=== PATIENT | female | born 1960 | race African-American/Black ===

== ENCOUNTER 2018-11-27 13:06 | Emergency (ER) | payer MEDICARE, OTHER ==
[~2018-11-27] VITALS: Ht 165.1 cm; Wt 99.8 kg
[2018-11-27 13:55] VITALS: BP 194/93
[2018-11-27] MEDS ORDERED: MEPERIDINE HCL (25 MG/ML) 1ML VIAL IM ONE (14:45)
[2018-11-27] MEDS ORDERED: PROMETHAZINE HCL 25 MG/ML 1ML IM ONE (14:45)
== END 2018-11-27 15:25 | disposition home or self-care (01) ==
LOC: ER 13:12
DX: M23.92 Unspecified internal derangement of left knee (principal); I10 Essential (primary) hypertension; F17.210 Nicotine dependence, cigarettes, uncomplicated; Z91.040 Latex allergy status
CPT/HCPCS: 73562; 96372; 99283; J2175; J2550

== ENCOUNTER → 2018-11-30 | Emergency (ER) | payer MEDICARE, MEDICAID | END | disposition left against medical advice (07) | LOC: EDUNIT# 21:42 → EDBD 21:50 → ER 21:50 | DX: F10.10 Alcohol abuse, uncomplicated (principal); Z53.21 Procedure and treatment not carried out due to patient leaving prior to being seen by health care provider ==

== ENCOUNTER 2024-10-27 18:48 | Inpatient (IN) | payer MEDICARE, MEDICAID ==
[~2024-10-27] VITALS: Ht 167.6 cm; Wt 112.3 kg
[~2024-10-27 18:48] MED LIST: NITR-87 PO
[2024-10-27] MEDS: MORPHINE SULFATE 4 MG/ML SYR/VIAL IV ONE (19:00)
[2024-10-27] MEDS: ONDANSETRON HCL 4 MG/2 ML VIAL IV ONE (19:00)
[2024-10-27] MEDS: SODIUM CHLORIDE 0.9% 1,000 ML IV ONE (19:00)
--- NOTE | 2024-10-27 19:22 | ED.PDOC ---
History of Present Illness HPI Comments 63 y/o obese F is BIBA for syncope. Per EMS report, daughter called after patient had a sudden and unprovoked syncopal episode, while walking out of a room of her home, this evening. Vision was stated to have narrowed prior to passing out. Patient was caught and assisted to the ground by daughter. Patient has been dealing with generalized bodyaches and watery diarrhea for the past 3x days. Patient has a history of colon cancer stage III - in remission, CHF, DM, HTN, and tobacco cigarette use. On scene, vitals were stable and within normal limits, with a noted blood glucose of 186. Patient denies having any injuries, dizziness, headache, or further associated symptoms. 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 Past Medical History PAST MEDICAL HISTORY: Cancer (Colon cancer stage III, in remission ), CHF, Depression, DM, HTN Surgical History: Denies all surgeries [employer] History: Denies all [employer] Hx Family History Family History: Unknown Social History Smoker: Cigarettes Alcohol: Denies ETOH Use Drugs: Denies Drug Use Lives In: Home All Other Systems: Reviewed and Negative (Comprehensive systems review obtained and negative except for what is stated in the HPI.) Physical Exam General Appearance: No Apparent Distress, Obese, Other (uncomfortable appearing ) HEENT: Normal ENT Inspection, Pharynx Normal, TMs Normal Neck: Full Range of Motion, Non-Tender, Normal, Normal Inspection Respiratory: Chest Non-Tender, Lungs Clear, No Accessory Muscle Use, No Respiratory Distress, Normal Breath Sounds Cardiovascular: No Edema, No JVD, No Murmur, No Gallop, Normal Peripheral Pulses, Regular Rate/Rhythm Breast Exam: Deferred Gastrointestinal: No Organomegaly, Non Tender, No Pulsatile Mass, Normal Bowel Sounds, Soft Genitalia: Deferred Pelvic: Deferred Rectal: Deferred Extremities: No calf tenderness, Normal capillary refill, Normal inspection, Normal range of motion, Non-tender, No pedal edema Musculoskeletal : Apperance: Normal Neurologic: Alert, child care II-XII nml as Tested, No Motor Deficits, Normal Affect, Normal Mood, No Sensory Deficits Cerebellar Function: Normal Reflexes: Normal Skin: Dry, Normal Color, Warm Lymphatic: No Adenopathy Was a procedure done? Was a procedure done?: No Differential Dx Considerations may include: Viral syndrome, UTI, URI, electrolyte imbalance, dehydration, vasovagal response, among others X-Ray, Labs, Meds, VS Vital Signs Date Time Temp Pulse Resp B/P (MAP) Pulse Ox O2 Delivery O2 Flow Rate FiO2 10/27/24 21:00 98.5 89 18 108/64 (79) 94 98.5 10/27/24 21:00 89 18 95 Room Air* 0 21 10/27/24 19:09 99.1 95 18 137/75 (95) 94 99.1 10/27/24 19:00 80 20 132/82 Lab Test 10/27/24 23:08 10/27/24 21:02 10/27/24 19:40 10/27/24 19:33 Range/Units Urine Color Yellow Yellow Urine Clarity Turbid H Clear Urine pH 5.5 5.0-9.0 Urine Specific [place] 1.015 1.001-1.035 Urine Protein 1+ H Negative Urine Ketones Negative Negative Urine Blood Negative Negative /uL Urine Nitrite Negative Negative Urine Bilirubin Negative Negative Urine Urobilinogen Normal Negative mg/dL Urine Leukocyte Esterase 1+ Negative /uL Urine RBC 1 0 - 4 /hpf Urine Microscopic WBC 7 H 0-5 /HPF Urine Squamous Epithelial Cells Few <5 /hpf Urine Bacteria Few H None Seen /hpf Urine Hyaline Casts Mod 0 - 2 /lpf Urine Mucus Few None Seen Urine Glucose Normal Normal mg/dL Troponin I High Sensitivity < 3 L 3 L </=34 ng/L White Blood Count 7.2 4.4-10.8 10^3/uL Red Blood Count 5.50 H 4.0-5.20 10^6/uL Hemoglobin 14.6 12.2-16.2 g/dL Hematocrit 42.7 36.0-46.0 % Mean Corpuscular Volume 77.7 L 80.0-100.0 fL Mean Corpuscular Hemoglobin 26.5 L 28.0-32.0 pg Mean Corpuscular Hemoglobin Concent 34.1 32.0-36.0 g/dL Red Cell Distribution Width 17.2 H 11.8-14.3 % Platelet Count 220 140-450 10^3/uL Mean Platelet Volume 8.6 6.9-10.8 fL Neutrophils (%) (Auto) 77.2 37.0-80.0 % Lymphocytes (%) (Auto) 15.3 10.0-50.0 % Monocytes (%) (Auto) 5.8 0.0-12.0 % Eosinophils (%) (Auto) 0.8 0.0-7.0 % Basophils (%) (Auto) 0.9 0.0-2.0 % Neutrophils # (Auto) 5.6 1.6-8.6 10 ^3/uL Lymphocytes # (Auto) 1.1 0.4-5.4 10 ^3/uL Monocytes # (Auto) 0.4 0-1.3 10 ^3/uL Eosinophils # (Auto) 0.1 0-0.8 10 ^3/uL Basophils # (Auto) 0.1 0-0.2 10 ^3/uL Nucleated Red Blood Cells 0.0 % Sodium Level 137 136-145 mmol/L Potassium Level 3.8 3.5-5.1 mmol/L Chloride Level 107 98-107 mmol/L Carbon Dioxide Level 21 20-31 mmol/L Anion Gap 9 5-15 Blood Urea Nitrogen 12 9-23 mg/dL Creatinine 1.06 H 0.550-1.02 mg/dL Glomerular Filtration Rate Calc 59 >90 mL/min BUN/Creatinine Ratio 11.3 10.0-20.0 Serum Glucose 162 H 74-106 mg/dL Calcium Level 9.4 8.7-10.4 mg/dL POC Glucose 165 H 70-106 mg/dl Current Medications Medications (Trade) Dose Ordered Sig/Kami Route Start Time Stop Time Status Last Admin Sodium Chloride 1,000 ml @ 1,000 mls/hr Q1H ONCE IV 10/27/24 19:00 10/27/24 19:59 IA 10/27/24 19:00 Ondansetron HCl (Zofran) 4 mg ONCE ONCE IV 10/27/24 19:00 10/27/24 19:01 IA 10/27/24 19:00 Morphine Sulfate 4 mg ONCE ONCE IV 10/27/24 19:00 10/27/24 19:01 IA 10/27/24 19:00 [place] [address] Ph: [phone] DIAGNOSTIC IMAGING Diagnostic Imaging Report : [id number] Signed PATIENT: DENYS NUNEZ ACCT: [id number] UNIT: [id number] : 1960 LOC: ER ROOM / BED: / AGE / SEX: 63 / F ADM STATUS: REG ER SERVICE 57 ORDERING PHYSICIAN: SALLY BRAVO MD PROCEDURE(s): HWOCT - HEAD WITHOUT CONTRAST REASON: syncope ORDER NUMBER(s): [id number], ACCESSION NUMBER(s): [id number] CT BRAIN WITHOUT CONTRAST HISTORY: syncope TECHNIQUE: Axial scans were obtained from the skull base through the vertex without contrast. Sagittal and coronal reformats were generated. One or more of the following radiation dose reduction techniques were used for this examination: automated exposure control, adjustment of the mA and/or kV according to patient size, use of iterative reconstruction technique. COMPARISON: None FINDINGS: Streak artifact somewhat limits evaluation, especially of the skull base and posterior fossa. As visualized, there is no definite evidence of acute intracranial hemorrhage or large vessel territorial infarction identified at this time. No midline shift. The basilar cisterns are patent. The visualized paranasal sinuses and mastoid air cells are clear. No grossly displaced calvarial fracture is identified. IMPRESSION: No acute intracranial Findings as visualized. If there is persistent clinical concern, follow-up MRI may be considered to further evaluate. ATED BY: HERON LAWRENCE MD DICTATED DATE/TIME: 10/27/242055 SIGNED BY: HERON LAWRENCE MD SIGNED DATE/TIME: 10/27/242055 CC: [address] [address] Ph: [phone] DIAGNOSTIC IMAGING Diagnostic Imaging Report : [id number] Signed PATIENT: DENYS NUNEZ ACCT: [id number] UNIT: [id number] : 1960 LOC: ER ROOM / BED: / AGE / SEX: 63 / F ADM STATUS: REG ER SERVICE 53 ORDERING PHYSICIAN: SALLY BRAVO MD PROCEDURE(s): ABPL - CT AB PEL WO CON-NO ORAL OR IV REASON: abdominal pain ORDER NUMBER(s): [id number], ACCESSION NUMBER(s): [id number] Exam: CT CT AB PEL WO CON-NO ORAL OR IV History: abdominal pain Comparison Study: None Technique: Multidetector spiral CT of the abdomen was performed from lung bases to pubic symphysis. Imaging was performed without IV contrast. Axial, coronal and sagittal multiplanar reformats were obtained from the axial data set by the technologist. Radiation Dose : 1. Abdomen/Pelvis: CTDIvol 23.79 mGy, DLP 1309.08 mGy*cm. Findings: Evaluation of solid organs is limited due to lack of intravenous contrast use. Lung Bases: No acute or significant lung base finding. Normal heart size. No pleural or pericardial effusion. Subcentimeter pulmonary nodule in the periphery of the right lower lobe. Liver: The liver is normal in size. No focal lesions. Gallbladder and Biliary Tree: Unremarkable Spleen: Unremarkable Pancreas: The pancreas is grossly normal in appearance. Adrenal Glands: Unremarkable Kidneys: Left renal cysts measuring up to 3.8 cm. Right kidney located in the lower midabdomen. Bladder: Evaluated. Bowel: The stomach is grossly normal in appearance. Small bowel and colon are normal in caliber and distribution. The appendix is not visualized; however, no secondary findings of acute appendicitis identified. Postsurgical changes of the rectosigmoid colon. Ascites: Absent Lymphadenopathy: No mesenteric, retroperitoneal or periportal lymphadenopathy. Abdominal Wall and Mesentery: Unremarkable. Vasculature: The visualized abdominal aorta is normal in size and caliber. Evaluation of abdominal and pelvic vessels is limited due to lack of intravenous contrast. Pelvic Organs: Hypodense lesion in the right adnexa measuring up to 2.5 cm with adjacent calcification. Musculoskeletal: No aggressive focal bony lesions, acute fractures or dislocation. 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 Left renal cysts measuring up to 3.8 cm. Potential dermoid cyst in the right adnexa measuring up to 2.5 cm. Consider further evaluation with ultrasound if clinically indicated. END IMPRESSION: ATED BY: OCHOA PHIPPS DO DICTATED DATE/TIME: 10/27/242158 SIGNED BY: DESIRE OCHOA Pablo DO SIGNED DATE/TIME: 10/27/242158 CC: Time of 1ST Reevaluation: 19:20 Reevaluation 1ST: Unchanged Patient Education/Counseling: Diagnosis, Treatment Family Education/Counseling: No Family Present Additional Information Previous visits reviewed: November 30, 2018 encounter for EtOH The following tests were ordered, and results were reviewed by me: Troponin, Head CT w/o contrast, CXR, UA, CBC, BMP Additional Information was gathered from interviewing the following independent historians: EMS I reviewed and agreed with the following test results read by other providers: Head CT w/o contrast, CXR I discussed treatment and results with medical personnel and: patient Departure 1 Departure Time of Disposition: 23:52 (Patient presented with syncope today and should be admitted. Data: 1. I ordered and reviewed the result of at least 3 labs including a CBC, BMP, and troponin. 2. I independently interpreted the following tests: EKG which shows a sinus arrhythmia and a chest x-ray which shows benign chest and a CT head which shows benign brain.Risk:This patient has a high risk of morbidity due to further diagnostic testing or treatment and may suffer from an acute cardiac, neurologic, or infectious disorder. Rationale: Patient should be admitted to the hospital for further management.) Impression: Primary Impression: Syncope and collapse Disposition: 09 ADMITTED INPATIENT Admit to: Med Surg Condition: Serious Critical Care Note Critical Care Time?: Yes Critical care comment: Syncope Authorized and Performed by: Sally Bravo MD Total critical care time: Approximately 38 minutes Due to a high probability of clinically significant, life threatening deterioration, the patient required my highest level of preparedness to intervene emergently and I personally spent this critical care time directly and personally managing the patient. This critical care time included obtaining a history; examining the patient; pulse oximetry; ordering and review of studies; arranging urgent treatment with development of a management plan; evaluation of patient's response to treatment; frequent reassessment; and, discussions with other providers. This critical care time was performed to assess and manage the high probability of imminent, life-threatening deterioration that could result in multi-organ failure. It was exclusive of separately billable procedures and treating other patients and teaching time. Please see my other sections and the rest of the note for further information on patient assessment and treatment. Stability Stability form required: No Heart Score Heart Score: Heart Score Response (Comments) Value History N/A 0 EKG N/A 0 Age N/A 0 Risk Factors N/A 0 Troponin N/A 0 Total 0 I personally scribed for SALLY BRAVO MD ([email or web address]) on 10/27/24 at 19:22. Electronically submitted by Narinder Hendricks ([email or web address]). I personally scribed for SALLY BRAVO MD ([email or web address]) on 10/27/24 at 23:21. Electronically submitted by Narinder Hendricks ([email or web address]). SALLY BRAVO MD Oct 27, 2024 19:22
[2024-10-27 19:55] LABS: Basophils # (auto) 0.1 10 ^3/uL (0-0.2); Basophils % (auto) 0.9 % (0.0-2.0); Eosinophils # (auto) 0.1 10 ^3/uL (0-0.8); Eosinophils % (auto) 0.8 % (0.0-7.0); Hematocrit 42.7 % (36.0-46.0); Hemoglobin 14.6 g/dL (12.2-16.2); Lymphocytes # (auto) 1.1 10 ^3/uL (0.4-5.4); Lymphocytes % (auto) 15.3 % (10.0-50.0); Mean Corpuscular Hemoglobin 26.5 pg (28.0-32.0); Mean Corpuscular Hgb Conc. 34.1 g/dL (32.0-36.0); Mean Corpuscular Volume 77.7 fL (80.0-100.0); Monocytes # (auto) 0.4 10 ^3/uL (0-1.3); Monocytes % (auto) 5.8 % (0.0-12.0); Neutrophils # (auto) 5.6 10 ^3/uL (1.6-8.6); Neutrophils % (auto) 77.2 % (37.0-80.0); Platelet Count (auto) 220 10^3/uL (140-450); Red Cell Distribution Width 17.2 % (11.8-14.3); White Blood Cell 7.2 10^3/uL (4.4-10.8)
[2024-10-27 19:59] LABS: Potassium 3.8 mmol/L (3.5-5.1); Sodium 137 mmol/L (136-145)
[2024-10-27 20:00] LABS: Calcium 9.4 mg/dL (8.7-10.4); Chloride 107 mmol/L (98-107)
[2024-10-27 20:05] LABS: BUN/Creatinine Ratio 11.3 (10.0-20.0); Blood Urea Nitrogen 12 mg/dL (9-23)
[2024-10-27 20:08] LABS: Glucose 162 mg/dL (74-106)
[2024-10-27 20:17] LABS: Anion Gap 9 (5-15); Carbon Dioxide 21 mmol/L (20-31)
--- NOTE | 2024-10-27 20:59 | DVH ---
CT BRAIN WITHOUT CONTRAST HISTORY: syncope TECHNIQUE: Axial scans were obtained from the skull base through the vertex without contrast. Sagitta l and coronal reformats were generated. One or more of the following radiation dose reduction techniq ues were used for this examination: automated exposure control, adjustment of the mA and/or kV accord ing to patient size, use of iterative reconstruction technique. COMPARISON: None FINDINGS: Streak artifact somewhat limits evaluation, especially of the skull base and posterior fossa. As visu alized, there is no definite evidence of acute intracranial hemorrhage or large vessel territorial in farction identified at this time. No midline shift. The basilar cisterns are patent. The visualized paranasal sinuses and mastoid air cells are clear. No grossly displaced calvarial frac ture is identified. IMPRESSION: No acute intracranial Findings as visualized. If there is persistent clinical concern, follow-up MRI may be considered to further evaluate.
[2024-10-27 21:00] VITALS: PULSE 89; RESP 18; O2SAT 95
--- NOTE | 2024-10-27 22:02 | DVH ---
Exam: CT CT AB PEL WO CON-NO ORAL OR IV History: abdominal pain Comparison Study: None Technique: Multidetector spiral CT of the abdomen was performed from lung bases to pubic symphysis. I maging was performed without IV contrast. Axial, coronal and sagittal multiplanar reformats were obta ined from the axial data set by the technologist. Radiation Dose : 1. Abdomen/Pelvis: CTDIvol 23.79 mGy, DLP 1309.08 mGy*cm. Findings: Evaluation of solid organs is limited due to lack of intravenous contrast use. Lung Bases: No acute or significant lung base finding. Normal heart size. No pleural or pericardial effusion. Subcentimeter pulmonary nodule in the periphery of the right lower lobe. Liver: The liver is normal in size. No focal lesions. Gallbladder and Biliary Tree: Unremarkable Spleen: Unremarkable Pancreas: The pancreas is grossly normal in appearance. Adrenal Glands: Unremarkable Kidneys: Left renal cysts measuring up to 3.8 cm. Right kidney located in the lower midabdomen. Bladder: Evaluated. Bowel: The stomach is grossly normal in appearance. Small bowel and colon are normal in caliber and d istribution. The appendix is not visualized; however, no secondary findings of acute appendicitis prasanth ntified. Postsurgical changes of the rectosigmoid colon. Ascites: Absent Lymphadenopathy: No mesenteric, retroperitoneal or periportal lymphadenopathy. Abdominal Wall and Mesentery: Unremarkable. Vasculature: The visualized abdominal aorta is normal in size and caliber. Evaluation of abdominal a nd pelvic vessels is limited due to lack of intravenous contrast. Pelvic Organs: Hypodense lesion in the right adnexa measuring up to 2.5 cm with adjacent calcificatio n. Musculoskeletal: No aggressive focal bony lesions, acute fractures or dislocation. 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 Left renal cysts measuring up to 3.8 cm. Potential dermoid cyst in the right adnexa measuring up to 2.5 cm. Consider further evaluation with u ltrasound if clinically indicated. END IMPRESSION:
[2024-10-27 23:28] LABS: Urine Bacteria FEW /hpf (None Seen); Urine Blood Negative /uL (Negative); Urine Clarity Turbid (Clear); Urine Color Yellow (Yellow); Urine Hyaline Cast MOD /lpf (0 - 2); Urine Mucus FEW (None Seen); Urine Protein, UAD 1+ (Negative); Urine Specific Gravity 1.015 (1.001-1.035); Urine Squamous Epithelial Cell FEW /hpf (<5); Urine Urobilinogen Normal (Negative); Urine WBC 7 /HPF (0-5); Urine pH 5.5 (5.0-9.0)
[2024-10-28] VITALS (8 sets, daily range): BP systolic 115–128; BP diastolic 56–62; PULSE 66–90; RESP 13–18; TEMP 97.6–98.6; O2SAT 94–97
--- NOTE | 2024-10-28 01:23 | DVHHP2 ---
History of Present Illness Reason for Visit: Syncope History of Present Illness 63-year-old female presents for evaluation of syncopal episode. Patient reports sitting and confirmed reports and Megace female dizzy today. She states trying to get back in to her home and was not able to make it. She states her family was able to catch her before she fell to the ground. She states when she regained consciousness she was so dizzy and had some chest pain. Currently denies chest pain or shortness for breath. No unilateral weakness or slurred speech. Reports having some abdominal cramps. She states having some diarrhea over the past couple of days. No abdominal pain. No fever or chills. No other acute complaints. Past Medical History Colon cancer, diabetes mellitus, hypertension Past Surgical History Denies Family History Noncontributory Smoke: <1 pack per day ALCOHOL: none Drugs: None Lives: with Family Review of Systems Review of Systems Review of systems are currently negative otherwise addressed in HPI. Allergies: Coded Allergies: Latex (Verified Allergy, Unknown, 11/27/18) Exam Vital Signs Vital Signs Date Time Temp Pulse Resp B/P (MAP) Pulse Ox O2 Delivery O2 Flow Rate FiO2 10/28/24 01:06 98.2 90 18 115/58 (77) 95 98.2 10/27/24 21:00 Room Air* 0 21 Exam Gen: 63-year-old female in no apparent distress, morbidly obese Skin: Warm, dry, normal color and texture, no rash. HEENT: Normocephalic atraumatic, mucous membranes moist and pink. Neck: Cervical and supraclavicular nodes normal without enlargement, trachea is midline, thyroid gland is normal without masses. Pulmonary: Clear to auscultation and percussion bilaterally. Cardiac: Regular rate and rhythm. No murmur Abdomen: Soft, nontender, nondistended, bowel sounds present all 4 quadrants, no guarding, no rigidity, no organomegaly. Extremities: No cyanosis, clubbing, no edema Neuro: Cranial nerves II through XII grossly intact, normal affect and speech, no focal motor deficits. Labs/Xrays ORDERING PHYSICIAN: SALLY BRAVO MD PROCEDURE(s): HWOCT - HEAD WITHOUT CONTRAST REASON: syncope ORDER NUMBER(s): [id number], ACCESSION NUMBER(s): [id number] CT BRAIN WITHOUT CONTRAST HISTORY: syncope TECHNIQUE: Axial scans were obtained from the skull base through the vertex without contrast. Sagittal and coronal reformats were generated. One or more of the following radiation dose reduction techniques were used for this examination: automated exposure control, adjustment of the mA and/or kV according to patient size, use of iterative reconstruction technique. COMPARISON: None FINDINGS: Streak artifact somewhat limits evaluation, especially of the skull base and posterior fossa. As visualized, there is no definite evidence of acute intracranial hemorrhage or large vessel territorial infarction identified at this time. No midline shift. The basilar cisterns are patent. The visualized paranasal sinuses and mastoid air cells are clear. No grossly displaced calvarial fracture is identified. IMPRESSION: No acute intracranial Findings as visualized. If there is persistent clinical concern, follow-up MRI may be considered to further evaluate. ATED BY: HERON LAWRENCE MD ORDERING PHYSICIAN: SALLY BRAVO MD PROCEDURE(s): ABPL - CT AB PEL WO CON-NO ORAL OR IV REASON: abdominal pain ORDER NUMBER(s): [id number], ACCESSION NUMBER(s): [id number] Exam: CT CT AB PEL WO CON-NO ORAL OR IV History: abdominal pain Comparison Study: None Technique: Multidetector spiral CT of the abdomen was performed from lung bases to pubic symphysis. Imaging was performed without IV contrast. Axial, coronal and sagittal multiplanar reformats were obtained from the axial data set by the technologist. Radiation Dose : 1. Abdomen/Pelvis: CTDIvol 23.79 mGy, DLP 1309.08 mGy*cm. Findings: Evaluation of solid organs is limited due to lack of intravenous contrast use. Lung Bases: No acute or significant lung base finding. Normal heart size. No pleural or pericardial effusion. Subcentimeter pulmonary nodule in the periphery of the right lower lobe. Liver: The liver is normal in size. No focal lesions. Gallbladder and Biliary Tree: Unremarkable Spleen: Unremarkable Pancreas: The pancreas is grossly normal in appearance. Adrenal Glands: Unremarkable Kidneys: Left renal cysts measuring up to 3.8 cm. Right kidney located in the lower midabdomen. Bladder: Evaluated. Bowel: The stomach is grossly normal in appearance. Small bowel and colon are normal in caliber and distribution. The appendix is not visualized; however, no secondary findings of acute appendicitis identified. Postsurgical changes of the rectosigmoid colon. Ascites: Absent Lymphadenopathy: No mesenteric, retroperitoneal or periportal lymphadenopathy. Abdominal Wall and Mesentery: Unremarkable. Vasculature: The visualized abdominal aorta is normal in size and caliber. Evaluation of abdominal and pelvic vessels is limited due to lack of intravenous contrast. Pelvic Organs: Hypodense lesion in the right adnexa measuring up to 2.5 cm with adjacent calcification. Musculoskeletal: No aggressive focal bony lesions, acute fractures or dislocation. 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 Left renal cysts measuring up to 3.8 cm. Potential dermoid cyst in the right adnexa measuring up to 2.5 cm. Consider further evaluation with ultrasound if clinically indicated. END IMPRESSION: Labs Test 10/27/24 23:08 10/27/24 21:02 10/27/24 19:40 10/27/24 19:33 Range/Units Urine Color Yellow Yellow Urine Clarity Turbid H Clear Urine pH 5.5 5.0-9.0 Urine Specific [place] 1.015 1.001-1.035 Urine Protein 1+ H Negative Urine Ketones Negative Negative Urine Blood Negative Negative /uL Urine Nitrite Negative Negative Urine Bilirubin Negative Negative Urine Urobilinogen Normal Negative mg/dL Urine Leukocyte Esterase 1+ Negative /uL Urine RBC 1 0 - 4 /hpf Urine Microscopic WBC 7 H 0-5 /HPF Urine Squamous Epithelial Cells Few <5 /hpf Urine Bacteria Few H None Seen /hpf Urine Hyaline Casts Mod 0 - 2 /lpf Urine Mucus Few None Seen Urine Glucose Normal Normal mg/dL Troponin I High Sensitivity < 3 L </=34 ng/L White Blood Count 7.2 4.4-10.8 10^3/uL Red Blood Count 5.50 H 4.0-5.20 10^6/uL Hemoglobin 14.6 12.2-16.2 g/dL Hematocrit 42.7 36.0-46.0 % Mean Corpuscular Volume 77.7 L 80.0-100.0 fL Mean Corpuscular Hemoglobin 26.5 L 28.0-32.0 pg Mean Corpuscular Hemoglobin Concent 34.1 32.0-36.0 g/dL Red Cell Distribution Width 17.2 H 11.8-14.3 % Platelet Count 220 140-450 10^3/uL Mean Platelet Volume 8.6 6.9-10.8 fL Neutrophils (%) (Auto) 77.2 37.0-80.0 % Lymphocytes (%) (Auto) 15.3 10.0-50.0 % Monocytes (%) (Auto) 5.8 0.0-12.0 % Eosinophils (%) (Auto) 0.8 0.0-7.0 % Basophils (%) (Auto) 0.9 0.0-2.0 % Neutrophils # (Auto) 5.6 1.6-8.6 10 ^3/uL Lymphocytes # (Auto) 1.1 0.4-5.4 10 ^3/uL Monocytes # (Auto) 0.4 0-1.3 10 ^3/uL Eosinophils # (Auto) 0.1 0-0.8 10 ^3/uL Basophils # (Auto) 0.1 0-0.2 10 ^3/uL Nucleated Red Blood Cells 0.0 % Sodium Level 137 136-145 mmol/L Potassium Level 3.8 3.5-5.1 mmol/L Chloride Level 107 98-107 mmol/L Carbon Dioxide Level 21 20-31 mmol/L Anion Gap 9 5-15 Blood Urea Nitrogen 12 9-23 mg/dL Creatinine 1.06 H 0.550-1.02 mg/dL Glomerular Filtration Rate Calc 59 >90 mL/min BUN/Creatinine Ratio 11.3 10.0-20.0 Serum Glucose 162 H 74-106 mg/dL Calcium Level 9.4 8.7-10.4 mg/dL POC Glucose 165 H 70-106 mg/dl Assessment/Plan Assessment/Plan Assessment Syncope Diabetes mellitus Acute kidney injury Plan Admit the patient to telemetry to the hospitalist Cardiology consultation Echocardiogram/carotid ultrasound pending Continue treatment per orders Plan discussed with: Patient My Orders Orders - AYAN SAUER Procedure Category Date Status Time * Cardiology Consult CONS 10/28/24 Verified 01:16 Basic Metabolic Panel LAB 10/28/24 Verified 04:00 Admit ADMIT 10/28/24 Verified 01:16 Temazepam (Restoril) PHA 10/28/24 Verified 01:30 Ondansetron Hcl PHA 10/28/24 Verified (Zofran) 01:30 Cardiac DIET 10/28/24 Verified Diet-2gna,Lofat,Lochol Breakfast Echo 2d Mode Cardiac US 10/28/24 Verified DOP 01:16 Carotid Duplx W Color US 10/28/24 Verified DOP 01:16 Condition: Fair [facility] 10/28/24 Verified 01:16 Acetaminophen Tablet PHA 10/28/24 Verified (Tylenol Tablet) 01:30 Bedrest With Bathroom [facility] 10/28/24 Verified Privileg 01:16 Glucose Blood PHA 10/28/24 Verified (Accu-Chek Comfort 07:00 Mild Sliding Scale PHA 10/28/24 Verified 07:00 Dextrose 50% Syringe PHA 10/28/24 Verified 01:30 Nitroglycerin PHA 10/28/24 Verified Sublingual (Ntrostat 01:30 Morphine Sulfate PHA 10/28/24 Verified Injection 01:30 Stat Ekg For Chest [facility] 10/28/24 Verified Pain 01:16 Notify Md Of Changes [facility] 10/28/24 Verified From Base 01:16 Office Manager Executive Assistant For [facility] 10/28/24 Verified 24 Hours 01:16 Emergency Dysrhythmia [facility] 10/28/24 Verified Protocol 01:16 Rhythm Strips Once [facility] 10/28/24 Verified Every Shift 01:16 Oxygen By Nasal RT 10/28/24 Verified Cannula 01:16 Stool Bacterial [place] 10/28/24 Verified Culture 01:16 Date of Service: Oct 28, 2024 Billing Provider: AYAN SAUER Common Visit Codes: [id number] INP/OBS CARE (HIGH) AYAN SAUER Oct 28, 2024 01:23
[2024-10-28] MEDS ORDERED: MORPHINE SULFATE INJ 2 MG/ml SYRG IV PRN (01:30)
[2024-10-28] MEDS ORDERED: NITROGLYCERIN 0.4 MG SL TAB SL PRN (01:30)
[2024-10-28] MEDS ORDERED: DEXTROSE (50%) 50ML SYRG IV PRN (01:30)
[2024-10-28] MEDS ORDERED: ALBUTEROL SULF 2.5 MG/0.5ML(0.5%) NEB SOLN NEB PRN (01:30)
[2024-10-28] MEDS ORDERED: ONDANSETRON HCL 4 MG/2 ML VIAL IV PRN (01:30)
[2024-10-28] MEDS ORDERED: ACETAMINOPHEN 325 MG TAB PO PRN (01:30)
[2024-10-28 04:46] LABS: Potassium 3.8 mmol/L (3.5-5.1); Sodium 137 mmol/L (136-145)
[2024-10-28 04:47] LABS: Anion Gap 9 (5-15); Calcium 8.8 mg/dL (8.7-10.4); Carbon Dioxide 21 mmol/L (20-31)
[2024-10-28 04:52] LABS: BUN/Creatinine Ratio 11.3 (10.0-20.0); Blood Urea Nitrogen 11 mg/dL (9-23)
[2024-10-28 05:02] LABS: Chloride 107 mmol/L (98-107); Glucose 147 mg/dL (74-106)
[2024-10-28] MEDS: KETOROLAC TROMETH 30 MG/ML 1ML VIAL IV ONE (05:21)
[2024-10-28] MEDS: ACCU-CHEK COMFORT CURVE STRIP VI SCH (06:32)
[2024-10-28] MEDS: InsuLIN REG 1unit/0.01ml Soln (100units/ml) SC SCH (06:45)
--- NOTE | 2024-10-28 08:03 | DVH ---
EXAM: US Duplex Bilateral Extracranial Arteries CLINICAL INDICATION: syncope TECHNIQUE: Real-time duplex ultrasound scan of the extracranial arteries integrating B-mode two-dime nsional vascular structure, Doppler spectral analysis and color flow Doppler imaging. CONTRAST: COMPARISON: None FINDINGS: RIGHT COMMON CAROTID ARTERY: Unremarkable. No occlusion or significant stenosis on color flow and spectral Doppler imaging. Peak systolic velocity in the right common carotid artery (CCA) is 63 cm/s . RIGHT INTERNAL CAROTID ARTERY: Unremarkable. No occlusion or significant stenosis on color flow an d spectral Doppler imaging. Peak systolic velocity in the right internal carotid artery (ICA) is 74 cm/s. RIGHT EXTERNAL CAROTID ARTERY: Unremarkable. No occlusion or significant stenosis on color flow an d spectral Doppler imaging. RIGHT VERTEBRAL ARTERY: Unremarkable. Antegrade flow. RIGHT ICA/CCA RATIO: Unremarkable. The ICA/CCA peak systolic velocity ratio is 1.2 on the right. LEFT COMMON CAROTID ARTERY: Unremarkable. No occlusion or significant stenosis on color flow and s pectral Doppler imaging. Peak systolic velocity in the left common carotid artery (CCA) is 79 cm/s. LEFT INTERNAL CAROTID ARTERY: Unremarkable. No occlusion or significant stenosis on color flow and spectral Doppler imaging. Peak systolic velocity in the left internal carotid artery (ICA) is 74 cm /s. LEFT EXTERNAL CAROTID ARTERY: Unremarkable. No occlusion or significant stenosis on color flow and spectral Doppler imaging. LEFT VERTEBRAL ARTERY: Unremarkable. Antegrade flow. LEFT ICA/CCA RATIO: Unremarkable. The ICA/CCA peak systolic velocity ratio is 0.9 on the left. LYMPH NODES: Unremarkable. No lymphadenopathy. OTHER FINDINGS: . . CAROTID STENOSIS REFERENCE USING IAC CRITERIA: Mild - <50% stenosis. ICA PSV is less than 180 cm/s and plaque or intimal thickening is visible. Moderate - 50-69% stenosis. ICA PSV is 180 to 230 cm/s and plaque is visible. Severe - 70-94% stenosis. ICA PSV is more than 230 cm/s and visible plaque with lumen narrowing is s een. Near occlusion - 95-99% stenosis. ICA PSV is variable and significant plaque with luminal narrowing is seen. Occluded - 100% stenosis. No flow identified. IMPRESSION: No acute findings in the arteries of the neck.
--- NOTE | 2024-10-28 10:57 | DVHCONRES ---
HERMELINDA HOLBROOK RESIDENT 10/28/24 1057: Date Seen: Oct 28, 2024 Resident Creating Document: HERMELINDA HOLBROOK RESIDENT Reason for Consultation Syncope History of Present Illness Patient is a 63-year-old female with past medical history of CHF, stage III colon cancer in remission, type 2 diabetes, hypertension, asthma, who comes in due to syncope. According to the patient, yesterday on 10/27/2024, she was sitting in her porch when she started feeling weak, as she stood up to go inside she felt dizzy, had blurred vision in ultimately had loss of consciousness without any impact or trauma. Patient states her family members were able to grab her and help her down. She denies having similar symptoms in the past. On review of systems patient is complaining of fatigue, shortness of breaths on exertion, palpitations, diarrhea that started yesterday with more than 10 loose watery bowel movements yesterday. Patient notes that on Sunday she went to a baby shower where she had potato salad, mac and cheese and beef ribs, denies any sick contacts or recent travel. Patient follows with policeman Dr. Avelar in [place]. Past Medical History CHF, stage III colon cancer in remission, type 2 diabetes, hypertension, asthma Past Surgical History Right ankle surgery, right knee surgery, left knee surgery, appendectomy, right corneal transplant Social History Smokin-7 cigarettes per day for the last 50 years Alcohol: Denies Drugs: Denies Allergies: Coded Allergies: Latex (Verified Allergy, Unknown, 11/27/18) Cawood (Verified Allergy, Unknown, 10/28/24) Home Meds Active Scripts Nitrofurantoin Monohydrate Mac (Macrobid) 100 Mg Cap, 100 MG PO BID for 7 Days, #14 CAP Prov:TOSHIA DOWD 05/08/23 Reported Medications Trazodone HCl (Trazodone Hydrochloride) 50 Mg Tab, 50 MG PO, TAB 10/28/24 Current Medications Current Medications Medications (Trade) Dose Ordered Sig/Kami Route PRN Reason Start Time Stop Time Status Last Admin Temazepam (Restoril) 15 mg QHSP PRN PO FOR INSOMNIA 10/28/24 01:30 Ondansetron HCl (Zofran) 4 mg Q4HP PRN IV NAUSEA / VOMITING 10/28/24 01:30 Acetaminophen (Tylenol Tablet) 650 mg Q6HP PRN PO PAIN SCALE 1-3 OR TEMP>100.4 10/28/24 01:30 Diagnostic Test (Pha) (Accu-Chek Comfort Curve T) 1 strip ACHS 10/28/24 07:00 10/28/24 06:32 Insulin Human Regular (InsuLIN R) ACHS SC 10/28/24 07:00 10/28/24 06:45 Dextrose 50 ml UD PRN IV Blood Sugar LESS THAN 60 10/28/24 01:30 Nitroglycerin (Ntrostat Sublingual) 0.4 mg Q5MINP PRN SL FOR CHEST PAIN 10/28/24 01:30 Morphine Sulfate 2 mg Q30M PRN IV FOR CHEST PAIN 10/28/24 01:30 Albuterol (Ventolin Medneb) 2.5 mg Q6HPRN PRN NEB SHORTNESS OF BREATH 10/28/24 01:30 Review of Systems Patient seen and examined at bedside. Patient is alert and oriented to time, place person and responding to all questions. General: Fatigue Eyes: No Pain, No Vision change, No Conjunctivae inflammation, No Eyelid inflammation, No Other, No Redness ENT: No Ear pain, No Ear discharge, No Nose pain, No Nose discharge, No Nose congestion, No Mouth pain, No Mouth swelling, No Throat pain, No Throat swelling, No Other Cardiovascular: No Chest Pain, Palpitations, No Orthopnea, No Paroxysmal No Dyspnea, No Edema, No Lt Headedness, No Other Respiratory: No Cough, No Dry, No Shortness of breath, SOB with exertion, No Wheezing, No Hemoptysis, No Pleuritic Pain, No Sputum, No Other Gastrointestinal: No Nausea, No Vomiting, No Abdominal Pain, Diarrhea, No Constipation, No Melena, No Hematochezia, No Other Genitourinary: No Dysuria, No Frequency, No Incontinence, No Hematuria, No Retention, No Other Musculoskeletal: No other, No neck pain, No shoulder pain, No arm pain, No back pain, No hand pain, No leg pain, No foot pain Skin: No Rash, No Lesions, No Jaundice, No Bruising, No Other Vital Signs Vital Signs Date Time Temp Pulse Resp B/P (MAP) Pulse Ox O2 Delivery O2 Flow Rate FiO2 10/28/24 08:00 97.0 75 12 116/71 (86) 98 97.0 10/28/24 07:12 Room Air* 0 21 Physical Exam General Appearance: Cooperative. Well developed. Well nourished. NAD. Dry mucous membranes Head Exam: Normal inspection Neck Exam: Normal inspection. Non-tender. Normal alignment Pulmonary/Respiratory: Chest non-tender. Clear bilateral breath sounds, no crackles, no wheezing. Cardiovascular/Chest: Regular rate and rhythm. No murmurs. No JVD. Peripheral Pulses: 2+ Radial (R). 2+ Radial (L). 2+ Pedal (R). 2+ Pedal (L) Abdominal Exam: Normal bowel sounds. Soft. normal abdomen, no visible veins, generalized abdominal tenderness to palpation. No hepatospenomegaly. No masses Ankle Exam: Negative ankle edema Lower extremities: Negative lower extremity edema Neuro/Mental Status: A&O x4. Coherent. Thoughts/Psych: Normal thought pattern. Appropriate mood and affect. Good judgement and insight Skin Exam: Normal inspection. Normal color. Warm. Dry Labs/Diagnostic Data Labs Test 10/28/24 06:31 10/28/24 04:31 10/27/24 23:08 10/27/24 21:02 Range/Units POC Glucose 173 H 70-106 mg/dl Sodium Level 137 136-145 mmol/L Potassium Level 3.8 3.5-5.1 mmol/L Chloride Level 107 98-107 mmol/L Carbon Dioxide Level 21 20-31 mmol/L Anion Gap 9 5-15 Blood Urea Nitrogen 11 9-23 mg/dL Creatinine 0.97 0.550-1.02 mg/dL Glomerular Filtration Rate Calc 66 >90 mL/min BUN/Creatinine Ratio 11.3 10.0-20.0 Serum Glucose 147 H 74-106 mg/dL Calcium Level 8.8 8.7-10.4 mg/dL Urine Color Yellow Yellow Urine Clarity Turbid H Clear Urine pH 5.5 5.0-9.0 Urine Specific [place] 1.015 1.001-1.035 Urine Protein 1+ H Negative Urine Ketones Negative Negative Urine Blood Negative Negative /uL Urine Nitrite Negative Negative Urine Bilirubin Negative Negative Urine Urobilinogen Normal Negative mg/dL Urine Leukocyte Esterase 1+ Negative /uL Urine RBC 1 0 - 4 /hpf Urine Microscopic WBC 7 H 0-5 /HPF Urine Squamous Epithelial Cells Few <5 /hpf Urine Bacteria Few H None Seen /hpf Urine Hyaline Casts Mod 0 - 2 /lpf Urine Mucus Few None Seen Urine Glucose Normal Normal mg/dL Troponin I High Sensitivity < 3 L </=34 ng/L Test 10/27/24 19:40 Range/Units White Blood Count 7.2 4.4-10.8 10^3/uL Red Blood Count 5.50 H 4.0-5.20 10^6/uL Hemoglobin 14.6 12.2-16.2 g/dL Hematocrit 42.7 36.0-46.0 % Mean Corpuscular Volume 77.7 L 80.0-100.0 fL Mean Corpuscular Hemoglobin 26.5 L 28.0-32.0 pg Mean Corpuscular Hemoglobin Concent 34.1 32.0-36.0 g/dL Red Cell Distribution Width 17.2 H 11.8-14.3 % Platelet Count 220 140-450 10^3/uL Mean Platelet Volume 8.6 6.9-10.8 fL Neutrophils (%) (Auto) 77.2 37.0-80.0 % Lymphocytes (%) (Auto) 15.3 10.0-50.0 % Monocytes (%) (Auto) 5.8 0.0-12.0 % Eosinophils (%) (Auto) 0.8 0.0-7.0 % Basophils (%) (Auto) 0.9 0.0-2.0 % Neutrophils # (Auto) 5.6 1.6-8.6 10 ^3/uL Lymphocytes # (Auto) 1.1 0.4-5.4 10 ^3/uL Monocytes # (Auto) 0.4 0-1.3 10 ^3/uL Eosinophils # (Auto) 0.1 0-0.8 10 ^3/uL Basophils # (Auto) 0.1 0-0.2 10 ^3/uL Nucleated Red Blood Cells 0.0 % Assessment Likely Orthostatic hypotension Diarrhea possibly due to gastroenteritis Dehydration due to above Congestive heart failure, NYHA class 2 Serial troponins <3, <3 Plan/Recommendation Pending echocardiogram Aggressive hydration Orthostatic vital signs Serum BNP Negative carotid Doppler Thank you so much for the opportunity to consult on your patient. Cardiology team will follow the patient. In case of any questions or concerns please feel free to reach out. Plan discussed with Dr. 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 I have reviewed the documentation, discussed the case with the resident and agree with the resident's documentation except as noted. The Assessment and Plan were formulated with me. Visit Coding Cardiology RES Date of Service: Oct 28, 2024 Billing Provider: MARGARET DE LA GARZA DO Cardiology Common Codes: [id number] INP/OBS CARE (High) HERMELINDA HOLBROOK RESIDENT Oct 28, 2024 10:57 MARGARET DE LA GARZA DO Oct 28, 2024 20:43
[2024-10-28] MEDS: SODIUM CHLORIDE 0.9% 500 ML IV ONE (13:12)
--- NOTE | 2024-10-28 13:44 | DVHPN2 ---
Subjective 63-year-old female who was admitted for diarrhea for 2 days associated with syncope and weakness Changes from previous H/P or p: Changes Objective Vitals Vital Signs Date Time Temp Pulse Resp B/P (MAP) Pulse Ox O2 Delivery O2 Flow Rate FiO2 10/28/24 13:00 59 15 134/67 (89) 95 10/28/24 12:00 97.9 97.9 10/28/24 07:12 Room Air* 0 21 Intake/Output Intake and Output 10/28/24 07:00 Intake Total 1000 ml Balance 1000 ml Intake IV Total 1000 ml General Appearance: Alert, Oriented X3, Cooperative, No acute distress Lungs: Clear to auscultation, Normal air movement Cardiovascular: Regular rate, Normal S1, Normal S2 Abdomen: Normal bowel sounds, Soft, No tenderness Extremities: No edema Medications Current Medications Medications Dose Ordered Sig/Kami Route Start Time Stop Time Status Last Admin Dose Admin Temazepam 15 mg QHSP PRN PO 10/28/24 01:30 Ondansetron HCl 4 mg Q4HP PRN IV 10/28/24 01:30 Acetaminophen 650 mg Q6HP PRN PO 10/28/24 01:30 Diagnostic Test (Pha) 1 strip ACHS 10/28/24 07:00 10/28/24 12:00 1 STRIP Insulin Human Regular ACHS SC 10/28/24 07:00 10/28/24 11:44 3 UNITS Dextrose 50 ml UD PRN IV 10/28/24 01:30 Nitroglycerin 0.4 mg Q5MINP PRN SL 10/28/24 01:30 Morphine Sulfate 2 mg Q30M PRN IV 10/28/24 01:30 Albuterol 2.5 mg Q6HPRN PRN NEB 10/28/24 01:30 Laboratory Results Laboratory Tests 10/27/24 19:40 10/28/24 04:31 Chemistry Test 10/27/24 19:40 10/28/24 04:31 Calcium Level 9.4 mg/dL (8.7-10.4) 8.8 mg/dL (8.7-10.4) Magnesium Level 1.9 mg/dL (1.6-2.6) Cardiac Markers Test 10/28/24 04:31 B-Type Natriuretic Peptide 12.36 pg/mL (0-100) Urinalysis Test 10/27/24 23:08 Urine Color Yellow (Yellow) Urine Clarity Turbid (Clear) H Urine pH 5.5 (5.0-9.0) Urine Specific [place] 1.015 (1.001-1.035) Urine Protein 1+ (Negative) H Urine Ketones Negative (Negative) Urine Blood Negative /uL (Negative) Urine Nitrite Negative (Negative) Urine Bilirubin Negative (Negative) Urine Urobilinogen Normal mg/dL (Negative) Urine Leukocyte Esterase 1+ /uL (Negative) Urine RBC 1 /hpf (0 - 4) Urine Microscopic WBC 7 /HPF (0-5) H Urine Squamous Epithelial Cells Few /hpf (<5) Urine Bacteria Few /hpf (None Seen) H Urine Hyaline Casts Mod /lpf (0 - 2) Urine Mucus Few (None Seen) Urine Glucose Normal mg/dL (Normal) Assessment/Plan Assessment/Plan Acute gastroenteritis Acute kidney injury due to vasomotor nephropathy Syncope due to the above STEF History of colon cancer status post chemo 1 year ago Type 2 diabetes Hypertension Plan IV fluids The patient is hungry, advance to cardiac diet Carotid Doppler was negative CT scan of the abdomen and pelvis is negative CT scan of the head is negative Check the stools for C diff Monitor closely Full code The rest of the management will depend on the hospital course Advance directives discussed for 18 minutes Plan discussed with: Patient Date of Service: Oct 28, 2024 Billing Provider: MARTINA BRAGG MD Common Visit Codes: [id number] INP/OBS CARE(HIGH) Secondary Visit Codes: [id number] CARE PLAN 30 MINUTES MARTINA BRGAG MD Oct 28, 2024 13:44
[2024-10-28] MEDS: SODIUM CHLORIDE 0.9% 1,000 ML IV SCH (14:50)
[2024-10-28] MEDS: POTASSIUM CHL 20 Meq TABLET PO ONE (14:57)
[2024-10-28] MEDS: MAGNESIUM OXIDE 400 MG TAB PO ONE (14:57)
[2024-10-28] MEDS ORDERED: TRAZ-181 PO (16:43)
--- NOTE | 2024-10-28 17:39 | DVH ---
INDICATION: syncope TECHNIQUE: Frontal view of the chest is submitted for review. COMPARISON: None FINDINGS: The cardiomediastinal silhouette is within normal limits for size. There is no significant pleural e ffusion. There is no focal airspace disease. No acute osseous abnormality is identified. IMPRESSION: No radiographic evidence of acute cardiopulmonary process.
[2024-10-28] MEDS: HYDROcodone-ACET 5/325MG TAB PO PRN (18:35)
[2024-10-28] MEDS: GABAPENTIN 300 MG CAP PO SCH (21:34)
[2024-10-28] MEDS: BACLOFEN 10 MG TAB PO SCH (21:35)
[2024-10-28] MEDS: TEMAZEPAM 15 MG CAP PO PRN (21:35)
[2024-10-29] VITALS (7 sets, daily range): BP systolic 111–128; BP diastolic 47–71; PULSE 64–76; RESP 16–18; TEMP 36.8; O2SAT 93–98
--- NOTE | 2024-10-29 08:56 | DVHPNRES ---
Progress Note Date Seen: Oct 29, 2024 Resident Creating Document: HERMELINDA LIU RESIDENT Medical Necessity Reason Pt with a Central, PICC or Fol: No Objective vital signs Vital Sign Date Time Temp Pulse Resp B/P (MAP) Pulse Ox O2 Delivery O2 Flow Rate FiO2 10/29/24 07:55 98.3 66 18 125/47 (73) 93 98.3 10/28/24 21:13 Room Air* 0 21 Total Intake and Output 10/28/24 10/28/24 10/29/24 15:00 23:00 07:00 Intake Total 600 ml 200 ml 1440 ml Balance 600 ml 200 ml 1440 ml medications Current Medications Medications Dose Ordered Sig/Kami Route Start Time Stop Time Status Last Admin Dose Admin Temazepam 15 mg QHSP PRN PO 10/28/24 01:30 10/28/24 21:35 15 MG Ondansetron HCl 4 mg Q4HP PRN IV 10/28/24 01:30 Acetaminophen 650 mg Q6HP PRN PO 10/28/24 01:30 Diagnostic Test (Pha) 1 strip ACHS 10/28/24 07:00 10/29/24 06:25 1 STRIP Insulin Human Regular ACHS SC 10/28/24 07:00 10/29/24 06:25 3 UNITS Dextrose 50 ml UD PRN IV 10/28/24 01:30 Nitroglycerin 0.4 mg Q5MINP PRN SL 10/28/24 01:30 Morphine Sulfate 2 mg Q30M PRN IV 10/28/24 01:30 Albuterol 2.5 mg Q6HPRN PRN NEB 10/28/24 01:30 Sodium Chloride 1,000 ml @ 100 mls/hr Q10H IV 10/28/24 13:45 10/28/24 23:39 100 MLS/HR Baclofen 5 mg TID PO 10/28/24 22:00 10/29/24 06:18 5 MG Acetaminophen/ Hydrocodone Bitart 1 tab Q6HPRN PRN PO 10/28/24 17:15 10/28/24 18:35 1 TAB Gabapentin 100 mg DAILY PO 10/29/24 10:00 Gabapentin 300 mg HS PO 10/28/24 22:00 10/28/24 21:34 300 MG Examination General Appearance: Cooperative. Well developed. Well nourished. NAD. Dry mucous membranes Head Exam: Normal inspection Neck Exam: Normal inspection. Non-tender. Normal alignment Pulmonary/Respiratory: Chest non-tender. Clear bilateral breath sounds, no crackles, no wheezing. Cardiovascular/Chest: Regular rate and rhythm. No murmurs. No JVD. Peripheral Pulses: 2+ Radial (R). 2+ Radial (L). 2+ Pedal (R). 2+ Pedal (L) Abdominal Exam: Normal bowel sounds. Soft. normal abdomen, no visible veins, g eneralized abdominal tenderness to palpation. No hepatospenomegaly. No masses Ankle Exam: Negative ankle edema Lower extremities: Negative lower extremity edema Neuro/Mental Status: A&O x4. Coherent. Thoughts/Psych: Normal thought pattern. Appropriate mood and affect. Good judgement and insight Skin Exam: Normal inspection. Normal color. Warm. Dry laboratory and microbiology Laboratory Tests 10/28/24 04:31 10/27/24 19:40 Test 10/28/24 04:31 Range/Units Serum Glucose 147 H 74-106 mg/dL Labs and/or images reviewed: Labs reviewed by me, Image(s) reviewed by me Problem List/Assessment/Plan Problem List/Assessment/Plan Assessment Likely Orthostatic hypotension; BP lying down 134/67, standing up 106/73 Diarrhea possibly due to gastroenteritis Dehydration due to above Congestive heart failure, NYHA class 2 Serial troponins <3, <3 Plan/Recommendation Pending echocardiogram Aggressive hydration Orthostatic vital signs Serum BNP Negative carotid Doppler Cardiology team will sign off. Thank you so much for the opportunity to consult on your patient. Cardiology team will follow the patient. In case of any questions or concerns please feel free to reach out. Plan discussed with Dr. Gordon Plan discussed with: Patient, Other (RN) My Orders My Orders Orders - HERMELINDA LIU RESIDENT Procedure Category Date Status Time Orthostatic Vital ED NURSING 10/28/24 Transmitted Signs Visit Coding Cardiology RES Date of Service: Oct 29, 2024 Billing Provider: MAE GORDON Sr., MD Cardiology Common Codes: [id number] HOSP CARE(High HERMELINDA LIU RESIDENT Oct 29, 2024 08:56
[2024-10-29] MEDS: GABAPENTIN 100 MG CAP PO SCH (09:01)
[2024-10-29 10:50] LABS: Alanine Aminotransferase 19 U/L (7-40); Albumin 3.8 g/dL (3.2-4.8); Alkaline Phosphatase 81 U/L (46-116); Anion Gap 6 (5-15); Aspartate Aminotransferase 16 U/L (13-40); BUN/Creatinine Ratio 13.2 (10.0-20.0); Blood Urea Nitrogen 12 mg/dL (9-23); Carbon Dioxide 23 mmol/L (20-31); Magnesium 1.8 mg/dL (1.6-2.6); Potassium 4.2 mmol/L (3.5-5.1); Sodium 140 mmol/L (136-145); Total Protein 6.2 g/dL (5.7-8.2)
[2024-10-29 10:51] LABS: Bilirubin, Total 0.5 mg/dL (0.2-1.0)
[2024-10-29 11:03] LABS: Calcium 8.5 mg/dL (8.7-10.4); Chloride 111 mmol/L (98-107); Glucose 204 mg/dL (74-106)
--- NOTE | 2024-10-29 20:43 | DVHDS2 ---
Discharge Summary Date of Admission Oct 28, 2024 at 01:16 Date of Discharge: Oct 29, 2024 Labs/Diagnostic Data: Laboratory Results Test 10/29/24 13:01 10/29/24 10:00 10/28/24 04:31 10/27/24 23:08 POC Glucose 121 mg/dl (70-106) Sodium Level 140 mmol/L (136-145) Potassium Level 4.2 mmol/L (3.5-5.1) Chloride Level 111 mmol/L (98-107) Carbon Dioxide Level 23 mmol/L (20-31) Anion Gap 6 (5-15) Blood Urea Nitrogen 12 mg/dL (9-23) Creatinine 0.91 mg/dL (0.550-1.02) Glomerular Filtration Rate Calc 71 mL/min (>90) BUN/Creatinine Ratio 13.2 (10.0-20.0) Serum Glucose 204 mg/dL (74-106) Calcium Level 8.5 mg/dL (8.7-10.4) Magnesium Level 1.8 mg/dL (1.6-2.6) Total Bilirubin 0.5 mg/dL (0.2-1.0) Aspartate Amino Transferase (AST) 16 U/L (13-40) Alanine Aminotransferase (ALT) 19 U/L (7-40) Alkaline Phosphatase 81 U/L (46-116) Total Protein 6.2 g/dL (5.7-8.2) Albumin 3.8 g/dL (3.2-4.8) B-Type Natriuretic Peptide 12.36 pg/mL (0-100) Urine Color Yellow (Yellow) Urine Clarity Turbid (Clear) Urine pH 5.5 (5.0-9.0) Urine Specific [place] 1.015 (1.001-1.035) Urine Protein 1+ (Negative) Urine Ketones Negative (Negative) Urine Blood Negative /uL (Negative) Urine Nitrite Negative (Negative) Urine Bilirubin Negative (Negative) Urine Urobilinogen Normal mg/dL (Negative) Urine Leukocyte Esterase 1+ /uL (Negative) Urine RBC 1 /hpf (0 - 4) Urine Microscopic WBC 7 /HPF (0-5) Urine Squamous Epithelial Cells Few /hpf (<5) Urine Bacteria Few /hpf (None Seen) Urine Hyaline Casts Mod /lpf (0 - 2) Urine Mucus Few (None Seen) Urine Glucose Normal mg/dL (Normal) Test 10/27/24 21:02 10/27/24 19:40 Troponin I High Sensitivity < 3 ng/L (</=34) White Blood Count 7.2 10^3/uL (4.4-10.8) Red Blood Count 5.50 10^6/uL (4.0-5.20) Hemoglobin 14.6 g/dL (12.2-16.2) Hematocrit 42.7 % (36.0-46.0) Mean Corpuscular Volume 77.7 fL (80.0-100.0) Mean Corpuscular Hemoglobin 26.5 pg (28.0-32.0) Mean Corpuscular Hemoglobin Concent 34.1 g/dL (32.0-36.0) Red Cell Distribution Width 17.2 % (11.8-14.3) Platelet Count 220 10^3/uL (140-450) Mean Platelet Volume 8.6 fL (6.9-10.8) Neutrophils (%) (Auto) 77.2 % (37.0-80.0) Lymphocytes (%) (Auto) 15.3 % (10.0-50.0) Monocytes (%) (Auto) 5.8 % (0.0-12.0) Eosinophils (%) (Auto) 0.8 % (0.0-7.0) Basophils (%) (Auto) 0.9 % (0.0-2.0) Neutrophils # (Auto) 5.6 10 ^3/uL (1.6-8.6) Lymphocytes # (Auto) 1.1 10 ^3/uL (0.4-5.4) Monocytes # (Auto) 0.4 10 ^3/uL (0-1.3) Eosinophils # (Auto) 0.1 10 ^3/uL (0-0.8) Basophils # (Auto) 0.1 10 ^3/uL (0-0.2) Nucleated Red Blood Cells 0.0 % Other Laboratory Tests 10/29/24 10:00 10/27/24 19:40 Brief Hx & Hospital Course: Final diagnoses: Acute gastroenteritis Acute kidney injury due to vasomotor nephropathy Syncope due to the above STEF History of colon cancer status post chemo 1 year ago Type 2 diabetes Hypertension 63-year-old female who was admitted for nausea and vomiting and diarrhea She was dehydrated with acute kidney injury She was given IV fluids and we attempted to do a C diff specimen in his stools however her diarrhea has stopped when she was admitted Overall she improved Her syncope is due to the above with dehydration Cardiology saw the patient and recommended no further interventions Her labs are back to normal and therefore she is stable for discharge and follow up with the primary care physician as soon as possible and resume the home medications Condition at Discharge: Stable Final Diagnosis/Problems List Acute gastroenteritis Acute kidney injury due to vasomotor nephropathy Syncope due to the above STEF History of colon cancer status post chemo 1 year ago Type 2 diabetes Hypertension Discharge Disposition: Home SNF Discharge Will this Physician continue t: No Discharge Instruct/Medications Diet: Consistent carbohydrate, Cardiac 2g Na,low cholest Activity: No Restrictions, As Tolerated Follow Up/Referral: PCP JOESPH Medications: Same home meds Discharge Statement: "Patient was advised to return to the ER or call 911 if any headaches, dizziness, shortness of breath, chest pain, abdominal pain, bleeding, fevers, or worsening of medical condition. Patient was counseled about treatment plan, medications, possible side effects, patientverbalized understanding. All questions were answered to the best of my ability. This discharge took greater then 30 minutes in planning, reviewing documentation, counseling the patient, and discussing with other team members." ASSESSMENT ASSESSMENT Assessment Acute gastroenteritis Acute kidney injury due to vasomotor nephropathy Syncope due to the above STEF History of colon cancer status post chemo 1 year ago Type 2 diabetes Hypertension Date of Service: Oct 29, 2024 Billing Provider: MARTINA BRAGG MD Common Visit Codes: [id number]/OBS DISCH DAY >30min MARTINA BRAGG MD Oct 29, 2024 20:43
== END 2024-10-29 16:30 | disposition home or self-care (01) | DRG 391 ==
LOC: EDBD 18:48 → EDUNIT# 18:48 → ER 18:48 → OVERFLOW 10-28 01:16 → TELE-CENTR 10-28 16:03
PROVIDERS: ADMIT Internal Medicine Geriatric Medicine; ATTEND Internal Medicine Geriatric Medicine
DX: K52.9 Noninfective gastroenteritis and colitis, unspecified (principal); N17.0 Acute kidney failure with tubular necrosis; E86.0 Dehydration; I95.1 Orthostatic hypotension; E11.9 Type 2 diabetes mellitus without complications; I50.9 Heart failure, unspecified; I11.0 Hypertensive heart disease with heart failure; F17.210 Nicotine dependence, cigarettes, uncomplicated; J45.909 Unspecified asthma, uncomplicated; E66.9 Obesity, unspecified; F32.A Depression, unspecified; Z85.038 Personal history of other malignant neoplasm of large intestine; Z91.040 Latex allergy status; Z79.899 Other long term (current) drug therapy; Z79.891 Long term (current) use of opiate analgesic; Z92.21 Personal history of antineoplastic chemotherapy; Z68.39 Body mass index [BMI] 39.0-39.9, adult
CPT/HCPCS: 36415; 70450; 74176; 80048; 80053; 81001; 82962; 83735; 83880; 84484; 85025; 93306; 93886; 96361; 96374; 96375; 99291; G0378; J1815; J1885; J2405